=== PATIENT | female | born 1930 | race African-American/Black ===

== ENCOUNTER 2021-11-11 09:09 | Observation (INO) | payer OTHER ==
[2021-11-11 11:49] LABS: BASO % 1.3 % (0-2.0); HEMATOCRIT 39.3 % (32.4-45.2); HEMOGLOBIN 12.4 GM/dL (10.7-15.3); LYMPH % 22.6 % (8-40); MCH 28.5 pg (25.7-33.7); MCHC 31.5 g/dl (32.0-36.0); MEAN CELL VOLUME 90.4 fl (80-96); MEAN PLT VOLUME 10.3 fl (7.5-11.1); MONO % 5.9 % (3.8-10.2); NEUT % 69.2 % (42.8-82.8); PLATELET COUNT 277 10^3/uL (134-434); RBC 4.34 M/mm3 (3.60-5.2); RDW 14.2 % (11.6-15.6); WHITE BLOOD COUNT 6.3 K/mm3 (4.0-10.0)
[2021-11-11 12:01] LABS: ACTIVATED PTT 31.7 SECONDS (25.2-36.5); INR 1.19 (0.83-1.09); PROTHROMBIN TIME (PATIENT) 13.7 SEC (9.7-13.0)
[2021-11-11 12:14] LABS: CHLORIDE 103 mmol/L (98-107); SODIUM 139 mmol/L (136-145)
[2021-11-11 12:16] LABS: CALCIUM 10.3 mg/dL (8.5-10.1)
[2021-11-11 12:17] LABS: ALBUMIN 3.1 g/dl (3.4-5.0); BLOOD UREA NITROGEN 20.5 mg/dL (7-18); CO2 31 mmol/L (21-32); GLUCOSE,RANDOM 90 mg/dL (74-106)
[2021-11-11 12:20] LABS: CREATININE 0.8 mg/dL (0.55-1.3); SGOT/AST 41 U/L (15-37); SGPT/ALT 15 U/L (13-61)
[2021-11-11 12:21] LABS: BILIRUBIN,TOTAL 0.4 mg/dL (0.2-1)
[2021-11-11 12:22] LABS: ALK PHOS 94 U/L (45-117); ANION GAP 5 MMOL/L (8-16); TOT PROT 7.3 g/dl (6.4-8.2)
[2021-11-11 13:53] LABS: CALCIUM 10.5 mg/dL (8.5-10.1)
[2021-11-11 13:54] LABS: BLOOD UREA NITROGEN 20.6 mg/dL (7-18)
[2021-11-11 13:57] LABS: CREATININE 0.7 mg/dL (0.55-1.3)
[2021-11-11] MEDS ORDERED: ACETAMINOPHEN 325 MG TABLET (FP) PO PRN (14:52)
[2021-11-11 16:32] LABS: EPI CELLS 8 /uL (0-25.1); HYALINE CASTS 1 /uL (0-3.1); URINE APPEARANCE CLEAR; URINE BACTERIA 10 /uL (0-1359); URINE BILIRUBIN NEGATIVE (NEGATIVE); URINE COLOR YELLOW; URINE GLUCOSE (UA) NEGATIVE (NEGATIVE); URINE KETONE NEGATIVE (NEGATIVE); URINE LEUK ESTERASE NEGATIVE (NEGATIVE); URINE NITRITE NEGATIVE (NEGATIVE); URINE PROTEIN TRACE (NEGATIVE); URINE RBC 163 /uL (0-23.9); URINE UROBILINOGEN 0.2 mg/dL (0.2-1.0); URINE WBC 18 /uL (0-25.8)
[2021-11-11] MEDS ORDERED: CEFTRIAXONE 1 GM/50 ML BAG ONE (17:00)
[2021-11-11] MEDS: CEFTRIAXONE 1 GM in DEXTROSE 5%-WATER - 50 ML IVPB SCH (17:00)
[2021-11-11 21:53] VITALS: BMI 19.0
[2021-11-12] MEDS ORDERED: PATIENT'S OWN MEDICATION (NON-FORMULARY) (Amlodipine/Valsartan [Exforge 10-160 Mg Tablet] PO SCH (10:00)
[2021-11-12] MEDS ORDERED: NEBIVOLOL 10 MG TABLET (FP) PO SCH (10:00)
[2021-11-12] MEDS: VALSARTAN 160 MG TABLET PO SCH (10:30)
[2021-11-12] MEDS: CEFTRIAXONE 1 GM in DEXTROSE 5%-WATER - 50 ML IVPB SCH (10:30)
[2021-11-12] MEDS: amLODIPine BESYLATE 10 MG TABLET (FP) PO SCH (10:30)
[2021-11-12] MEDS ORDERED: METOPROLOL TARTRATE 25 MG TABLET (FP) PO SCH ×2 (11:30)
[2021-11-12] MEDS: SODIUM CHLORIDE 0.45% 1,000 ML IV SCH (22:32)
[2021-11-12] MEDS: METOPROLOL TARTRATE 25 MG TABLET (FP) PO SCH (22:32)
[2021-11-13] MEDS: amLODIPine BESYLATE 10 MG TABLET (FP) PO SCH (09:33)
[2021-11-13] MEDS: VALSARTAN 160 MG TABLET PO SCH (09:33)
[2021-11-13] MEDS: METOPROLOL TARTRATE 25 MG TABLET (FP) PO SCH ×2 (09:33→21:18)
[2021-11-13] MEDS: ASPIRIN 81 MG CHEWABLE TABLETS PO SCH (14:08)
[2021-11-13] MEDS: SODIUM CHLORIDE 0.45% 1,000 ML IV SCH (23:00)
[2021-11-14] MEDS: amLODIPine BESYLATE 10 MG TABLET (FP) PO SCH (10:49)
[2021-11-14] MEDS: METOPROLOL TARTRATE 25 MG TABLET (FP) PO SCH ×2 (10:49→21:05)
[2021-11-14] MEDS: VALSARTAN 160 MG TABLET PO SCH (10:49)
[2021-11-14] MEDS: ASPIRIN 81 MG CHEWABLE TABLETS PO SCH (10:49)
[2021-11-14] MEDS: AMINO ACIDS/PROTEIN HYDROLYS 30 ML LIQUID.PKT PO SCH (14:22)
[2021-11-14] MEDS ORDERED: LORazepam 2 MG/ML SDV VIAL IM PRN (14:28)
[2021-11-14] MEDS: SODIUM CHLORIDE 0.45% 1,000 ML IV SCH (23:45)
[2021-11-15] MEDS: AMINO ACIDS/PROTEIN HYDROLYS 30 ML LIQUID.PKT PO SCH (08:54)
[2021-11-15] MEDS: VALSARTAN 160 MG TABLET PO SCH (10:43)
[2021-11-15] MEDS: amLODIPine BESYLATE 10 MG TABLET (FP) PO SCH (10:43)
[2021-11-15] MEDS: ASPIRIN 81 MG CHEWABLE TABLETS PO SCH (10:43)
[2021-11-15] MEDS: METOPROLOL TARTRATE 25 MG TABLET (FP) PO SCH (10:45)
[2021-11-15 14:56] VITALS: BP 107/56; PULSE 89; TEMP 98.6
== END 2021-11-15 16:40 ==
LOC: JER 09:09 → JERBED 09:55 → UNDOADMOB 09:55 → INTOOBSV 09:55 → JERBED 14:52 → J4W 20:41
PROVIDERS: ADMIT Internal Medicine; ATTEND Internal Medicine
DX: S09.90XA Unspecified injury of head, initial encounter (principal); F25.9 Schizoaffective disorder, unspecified; I48.91 Unspecified atrial fibrillation; Z79.01 Long term (current) use of anticoagulants; I25.10 Atherosclerotic heart disease of native coronary artery without angina pectoris; I11.9 Hypertensive heart disease without heart failure; E11.9 Type 2 diabetes mellitus without complications; W18.39XA Other fall on same level, initial encounter; Y93.89 Activity, other specified; Y92.099 Unspecified place in other non-institutional residence as the place of occurrence of the external cause; G20 Parkinson's disease; F02.80 Dementia in other diseases classified elsewhere, unspecified severity, without behavioral disturbance, psychotic disturbance, mood disturbance, and anxiety; R77.8 Other specified abnormalities of plasma proteins; E83.52 Hypercalcemia; Z91.81 History of falling
CPT/HCPCS: 0241U-QW; 36415; 70450-TC; 71045-TC-FY; 72125-TC; 72170-TC-FY; 80048; 80053; 81003; 82330; 82550; 83970; 84484; 85025; 85610; 85730; 87086; 93005; 93010; 93306-TC; 97116-GP; 97162-GP; 99285-25; G0378